=== PATIENT | female | born 1955 | race Caucasian/White ===

== ENCOUNTER 2024-04-12 19:46 | Emergency (ER) | payer MEDICARE ==
[~2024-04-12] VITALS: Ht 167.6 cm; Wt 108.9 kg
[2024-04-12] MEDS ORDERED: AMOXICILLIN500 MG PO (20:33)
[2024-04-12] MEDS ORDERED: ALBUTEROL0.63 MG/3 NEB (20:35)
[2024-04-12] MEDS ORDERED: PREDNISONE50 MG PO (20:36)
[2024-04-12] MEDS: DEXAMETHASONE SOD PHOS INJ 4 MG/ML SDV IM ONE (20:40)
[2024-04-12] MEDS: ALBUTEROL/IPRATROPIUM 3 ML NEB NEB ONE (20:41)
[2024-04-12] MEDS ORDERED: BENZONATATE100 MG PO (20:42)
[2024-04-12 21:28] VITALS: PULSE 108; RESP 20; TEMP 98.4
[2024-04-12 21:39] VITALS: BP 146/63; PULSE 86; RESP 18; TEMP 98.5; O2SAT 92
== END 2024-04-12 21:28 | disposition home or self-care (01) ==
LOC: FSED 19:57
DX: R06.00 Dyspnea, unspecified (principal); J20.9 Acute bronchitis, unspecified; Z99.81 Dependence on supplemental oxygen; I10 Essential (primary) hypertension; J44.9 Chronic obstructive pulmonary disease, unspecified; E78.5 Hyperlipidemia, unspecified; R94.31 Abnormal electrocardiogram [ECG] [EKG]; Z85.118 Personal history of other malignant neoplasm of bronchus and lung
CPT/HCPCS: 71046; 87400; 93005; 99284; J1100